=== PATIENT | male | born 1975 | race Caucasian/White ===

== ENCOUNTER 2023-10-07 09:06 | Day surgery (SDC) | payer OTHER, SELFPAY ==
[2023-09-25 11:59] VITALS: BMI 30.7
[2023-10-07 09:58] VITALS: BP 132/85; PULSE 82; RESP 16; TEMP 36.7; O2SAT 97; BMI 30.7
--- NOTE | 2023-10-07 10:05 | PM.HPGS ---
History of Present Illness History of Present Illness Consent: Risks, benefits, and alternatives have been discussed and questions answered. Patient agrees to proceed with procedure. Chief complaint: Neoplasm Screening Narrative: Enrique Salcedo is a 48 year old male presents for screening colonoscopy. Patient's current weight appetite and bowel movements are normal. Patient denies abdominal pain. Has had no bleeding. Family history noncontributory. Review of Systems Review of Systems: Review of systems noncontributory. [facility] Surgical History Surgical History (Updated 08/26/23 @ 13:05 by Alysa Greco [facility]) History of appendectomy (~2004) Family History Family History (Updated 08/26/23 @ 13:06 by Alysa Greco [facility]) Father Malignant neoplasm of prostate Grandparent Ovarian cancer Social History Social History (Updated 08/26/23 @ 13:14 by Alysa Greco [facility]) Smoking status: Never smoker Alcohol intake: current Alcohol use details: 1x per month Substance use type: does not use Lack of Transportation: No Lack of Food: Never True Current Housing: I Have Housing Concerned About Future Housing: No Difficulty Paying Gas/Electric Bills: No Difficulty Paying for Meds: No Currently Unemployed: YES Education: Master's Degree or Higher Difficulty w/ Childcare or Family Care: No Living arrangements: with family Spiritual care concerns: No Meds Home Medications and Allergies Home Medications Medication Instructions Recorded Confirmed Type testosterone cypionate 100 mg/mL 100 mg IM WEEKLY 08/26/23 10/07/23 History intramuscular oil (Depo-Testosterone) Vitamin D3 1 tab-cap PO DIRECTED 09/25/23 10/07/23 History Allergies Allergy/AdvReac Type Severity Reaction Status Date / Time No Known Allergies Allergy Verified 10/07/23 10:01 Vital Signs Vital Signs - 24 hr 10/07/23 09:58 Temperature 98.1 F Pulse Rate 82 Respiratory Rate 16 Blood Pressure 132/85 Pulse Oximetry 97 Oxygen Delivery Room Air Exam Narrative: Physical exam reveals patient to be alert. Vital signs stable. HEENT exam is unremarkable. Patient is anicteric. Lungs are clear to auscultation and percussion. Heart is without murmur or extra sounds. Abdomen bowel sounds are present soft nontender with no organomegaly. Digital external rectal exam normal. Assessment and Plan Assessment and plan (1) Screening for colon cancer: Code(s): Z12.11 - Encounter for screening for malignant neoplasm of colon Status: Acute Assessment and Plan: Patient presents for screening colonoscopy. He appears to be at average risk for colon polyps. Further recommendations may be given after endoscopy.
[2023-10-07] MEDS: LACTATED RINGERS 1,000 ML 150 ML IV CONT (10:06)
--- NOTE | 2023-10-07 10:40 | P.PNAN_ITS ---
Anes - Initial Pre Proc Eval Procedure: Operation Date: 10/07/23 11:30 Proposed Procedures p Screening Colonoscopy - Enrique Nguyen MD Date/Time: 10/07/23 10:40 Surgeon: Enrique Nguyen MD Pre Op Diagnosis: Neoplasm Screening Patient Data Age: 48 Gender: M Height: 1.8 m Weight: 99.7 kg Last Vital Signs Temp 36.7 C 10/07/23 09:58 Pulse 82 10/07/23 09:58 Resp 16 10/07/23 09:58 BP 132/85 10/07/23 09:58 Pulse Ox 97 10/07/23 09:58 O2 Del Method Room Air 10/07/23 09:58 Allergies Allergy/AdvReac Type Severity Reaction Status Date / Time No Known Allergies Allergy Verified 10/07/23 10:01 Home Medications Medication Instructions Recorded Confirmed Type testosterone cypionate 100 mg/mL 100 mg IM WEEKLY 08/26/23 10/07/23 History intramuscular oil (Depo-Testosterone) Vitamin D3 1 tab-cap PO DIRECTED 09/25/23 10/07/23 History Patient hx anesthesia problems: none Family hx anesthesia problems: none Results Review: All pre-operative results and documents have been reviewed as part of the pre- operative evaluation. [facility] Surgical History Surgical History History of appendectomy (~2004) Family History Family History Father Malignant neoplasm of prostate Grandparent Ovarian cancer Social History Social History Smoking status: Never smoker Alcohol intake: current Alcohol use details: 1x per month Substance use type: does not use Lack of Transportation: No Lack of Food: Never True Current Housing: I Have Housing Concerned About Future Housing: No Difficulty Paying Gas/Electric Bills: No Difficulty Paying for Meds: No Currently Unemployed: YES Education: Master's Degree or Higher Difficulty w/ Childcare or Family Care: No Living arrangements: with family Spiritual care concerns: No Anes - Eval Final PreProcedure Day of Procedure 10/07/23 10:40 Patient weight: overweight Heart: regular rate and rhythm Lungs: clear to auscultation Airway: Mallampati scale class II Neurological: alert and oriented Last oral intake: >/= 8 hours ASA classification: II Emergent: no Anesthetic plan: proceed Anesthesia type and monitoring: general GIVS and standard monitoring Results Review: All pre-operative results and documents have been reviewed as part of the pre- operative evaluation. Informed Consent: The patient's anesthetic plan and its attendant risks and benefits were discussed with the patient/family/POA. Questions were solicited and answers provided to the satisfaction of the patient/family/POA.
[2023-10-07 12:16] VITALS: BP 114/88; PULSE 86; RESP 16; O2SAT 99
[2023-10-07 12:26] VITALS: BP 123/85; PULSE 87; RESP 16; O2SAT 97
[2023-10-07 12:36] VITALS: BP 126/93; PULSE 84; RESP 16; O2SAT 98
--- NOTE | 2023-10-07 12:57 | WPDANESPN ---
Anes - Prog Note Post-Op Date/Time: 10/07/23 12:57 Cardiovascular status: normal Respiratory status: normal Airway patency: baseline Mental status: baseline Post-Op hydration status: normal Vital Signs: Last Vital Signs Temp 36.7 C 10/07/23 09:58 Pulse 84 10/07/23 12:36 Resp 16 10/07/23 12:36 BP 126/93 H 10/07/23 12:36 Pulse Ox 98 10/07/23 12:36 O2 Del Method Room Air 10/07/23 12:36 Pain Score (VAS): 0 I/O: Intake & Output 10/06/23 10/07/23 10/07/23 23:59 07:59 15:59 Intake Total 600 Balance 600 Patient Feedback: Patient satisfied with anesthetic care.
== END 2023-10-07 12:45 | disposition home or self-care (01) ==
PROVIDERS: PCP Internal Medicine; Visit Provider Internal Medicine Gastroenterology
PROC: 0DJD8ZZ Inspection of Lower Intestinal Tract, Via Natural or Artificial Opening Endoscopic (ICD-10-PCS; CPT 45378; principal; 2023-10-07 11:30)
DX: Z12.11 Encounter for screening for malignant neoplasm of colon (principal); K64.8 Other hemorrhoids
CPT/HCPCS: 45378

== ENCOUNTER 2024-08-08 09:30 | Outpatient (CLI) | payer OTHER, SELFPAY ==
[2024-08-08 20:10] LABS: Add Urine Microscopic? NO; Appearance Urine Clear (Clear); Bilirubin Urine Negative (Negative); Blood Urine Negative (Negative); Color Urine Yellow (Yellow); Glucose Urine UA Negative (Negative); Ketones Urine Negative (Negative); Leukocyte Esterase Ur Negative LEU/UL (Negative); Nitrate Urine Negative (Negative); Protein Urine Negative (Negative); Specific Grav Ur 1.004 (1.001-1.035); Urobilinogen Urine 0.2 mg/dL (<2.0)
== END 2024-08-08 09:31 | disposition home or self-care (01) ==
LOC: ANHGOSHLAB 09:31
PROVIDERS: PCP Internal Medicine; Visit Provider Internal Medicine
DX: R35.0 Frequency of micturition (principal)
CPT/HCPCS: 81003